=== PATIENT | female | born 1950 | race Caucasian/White ===

== ENCOUNTER 2017-08-16 09:22 | Outpatient (CLI) | payer OTHER | END 2017-08-16 19:42 | disposition home or self-care (01) | LOC: SMA 09:22 | PROVIDERS: ATTEND Family Medicine | DX: Z12.31 Encounter for screening mammogram for malignant neoplasm of breast (principal) | CPT/HCPCS: 77067 ==

== ENCOUNTER 2017-09-10 09:30 | Outpatient (CLI) | payer OTHER | END 2017-09-10 19:19 | disposition home or self-care (01) | LOC: SMA 09:30 | DX: R92.8 Other abnormal and inconclusive findings on diagnostic imaging of breast (principal); R92.1 Mammographic calcification found on diagnostic imaging of breast | CPT/HCPCS: 76642; 77065 ==

== ENCOUNTER 2018-10-02 15:52 | Outpatient (CLI) | payer OTHER | END 2018-10-02 21:02 | disposition home or self-care (01) | LOC: SMA 15:52 | PROVIDERS: ATTEND Family Medicine | DX: Z12.31 Encounter for screening mammogram for malignant neoplasm of breast (principal) | CPT/HCPCS: 77067 ==

== ENCOUNTER 2021-02-01 15:47 | Outpatient (CLI) | payer OTHER | END 2021-02-01 19:58 | disposition home or self-care (01) | LOC: SMA 15:47 | PROVIDERS: ATTEND Family Medicine | DX: Z12.31 Encounter for screening mammogram for malignant neoplasm of breast (principal) | CPT/HCPCS: 77067 ==